=== PATIENT | female | born 1990 | race Two or more races ===

== ENCOUNTER 2021-05-11 04:49 | Day surgery (SDC) | payer OTHER ==
[2021-05-08 12:18] VITALS: BMI 20.9
[2021-05-11] MEDS ORDERED: ONDANSETRON 4 MG/2 ML VIAL ONE (11:58)
[2021-05-11] MEDS ORDERED: DEXAMETHASONE SOD PHOSPHATE 4 MG/1 ML VIAL ONE (11:58)
[2021-05-11] MEDS ORDERED: MIDAZOLAM HCL 2 MG/2 ML SINGLE DOSE VIAL ONE (11:59)
[2021-05-11] MEDS ORDERED: LIDOCAINE HCL 1%, 10 MG/ML (50 mL VIAL) INF ONE (12:14)
[2021-05-11 14:32] VITALS: BP 135/83; PULSE 85; TEMP 97.3
== END 2021-05-11 14:25 | disposition home or self-care (01) ==
LOC: JASU-SURG 04:49
PROVIDERS: ATTEND Surgery
PROC: 0HBT0ZX Excision of Right Breast, Open Approach, Diagnostic (ICD-10-PCS; principal; 2021-05-11 11:00)
DX: D24.1 Benign neoplasm of right breast (principal)
CPT/HCPCS: 81025; 88307-TC; 94760